=== PATIENT | male | born 1980 | race Two or more races ===

== ENCOUNTER 2018-01-04 20:07 | Emergency (ER) | payer BC ==
[~2018-01-04] VITALS: Ht 170.2 cm; Wt 104.3 kg
--- NOTE | 2018-01-04 20:37 | NUR ---
Patient discharged to home in stable conditon. Written and verbal after care instructions given. Patient verbalizes understanding of instructions. Patient able to ambulate unassisted with a steady gait. Patient left with all personal belongings.
[2018-01-04 20:42] VITALS: BP 148/88
== END 2018-01-04 20:37 | disposition home or self-care (01) ==
LOC: ER 20:09
DX: R20.2 Paresthesia of skin (principal); V49.40XA Driver injured in collision with unspecified motor vehicles in traffic accident, initial encounter; Y93.89 Activity, other specified; Y92.410 Unspecified street and highway as the place of occurrence of the external cause; Y99.8 Other external cause status
CPT/HCPCS: A4663